=== PATIENT | female | born 1955 | race Caucasian/White ===

== ENCOUNTER 2023-12-18 17:31 | Inpatient (IN) | payer OTHER ==
[2023-12-18 17:40] VITALS: BMI 28.7
[2023-12-18 19:35] LABS: BASO % 0.8 % (0-2.0); EOS % 1.2 % (0-4.5); HEMATOCRIT 40.8 % (32.4-45.2); HEMOGLOBIN 13.6 GM/dL (10.7-15.3); LYMPH % 37.9 % (8-40); MCH 30.7 pg (25.7-33.7); MCHC 33.3 g/dl (32.0-36.0); MEAN CELL VOLUME 92.4 fl (80-96); MEAN PLT VOLUME 9.2 fl (7.5-11.1); MONO % 9.7 % (3.8-10.2); NEUT % 50.4 % (42.8-82.8); PLATELET COUNT 226 10^3/uL (134-434); RBC 4.41 M/mm3 (3.60-5.2); RDW 13.5 % (11.6-15.6); WHITE BLOOD COUNT 9.8 K/mm3 (4.0-10.0)
[2023-12-18 19:53] LABS: POTASSIUM 5.2 mmol/L (3.5-5.1)
[2023-12-18 19:55] LABS: CALCIUM 9.3 mg/dL (8.5-10.1)
[2023-12-18 19:56] LABS: ALBUMIN 3.8 g/dl (3.4-5.0); BLOOD UREA NITROGEN 15.9 mg/dL (7-18)
[2023-12-18 19:59] LABS: CREATININE 0.8 mg/dL (0.55-1.3)
[2023-12-18 20:01] LABS: BILIRUBIN,TOTAL 0.4 mg/dL (0.2-1); TOT PROT 7.3 g/dl (6.4-8.2)
[2023-12-18 20:05] LABS: EPI CELLS 12 /uL (0-25.1); HYALINE CASTS 2 /uL (0-3.1); PH,URINE 5.5 (5.0-8.0); URINE APPEARANCE CLEAR; URINE BACTERIA 27 /uL (0-1359); URINE BILIRUBIN NEGATIVE (NEGATIVE); URINE COLOR YELLOW; URINE GLUCOSE (UA) 3+ (NEGATIVE); URINE KETONE NEGATIVE (NEGATIVE); URINE LEUK ESTERASE 1+ (NEGATIVE); URINE NITRITE NEGATIVE (NEGATIVE); URINE PROTEIN NEGATIVE (NEGATIVE); URINE RBC 2 /uL (0-23.9); URINE UROBILINOGEN 0.2 mg/dL (0.2-1.0); URINE WBC 66 /uL (0-25.8)
[2023-12-18] MEDS ORDERED: ACETAMINOPHEN 325 MG TABLET (FP) ONE (20:26)
[2023-12-18] MEDS ORDERED: MAG HYDROX/AL HYDROX/SIMETH 30 ML UNIT-DOSE CUP ONE (20:26)
[2023-12-18] MEDS: MAG HYDROX/AL HYDROX/SIMETH 30 ML UNIT-DOSE CUP PO ONE (20:32)
[2023-12-18] MEDS: ACETAMINOPHEN 500 MG TABLET (FP) PO ONE (20:32)
[2023-12-18] MEDS: LACTATED RINGERS SOLUTION 1000 ML INFUS.BAG IV ONE (20:32)
[2023-12-18] MEDS ORDERED: CEFTRIAXONE 1 GM/50 ML BAG ONE (20:34)
[2023-12-18] MEDS: CEFTRIAXONE 1,000 MG in DEXTROSE 5%-WATER - 50 ML IVPB ONE (20:43)
[2023-12-18] MEDS: ONDANSETRON 4 MG/2 ML VIAL IVPB ONE (20:43)
[2023-12-18] MEDS ORDERED: ONDANSETRON 4 MG/2 ML VIAL ONE (20:43)
[2023-12-19] MEDS ORDERED: ONDANSETRON 4 MG TABLET PO PRN (00:38)
[2023-12-19] MEDS: LACTATED RINGERS SOLUTION 1,000 ML IV SCH ×3 (00:42→13:19)
[2023-12-19] MEDS ORDERED: ONDANSETRON *ODT* 4 MG TABLET SL PRN (05:50)
[2023-12-19] MEDS ORDERED: PANTOPRAZOLE 40 MG TABLET PO ONE (10:02)
[2023-12-19] MEDS ORDERED: ENOXAPARIN NA (PORCINE) 40 MG/0.4 ML DISP.SYRIN SQ ONE (10:03)
[2023-12-19] MEDS ORDERED: INSULIN ASPART SLIDING SCALE (NOVOLOG) 1 VIAL SQ ONE ×3 (10:03→18:15)
[2023-12-19] MEDS ORDERED: ACETAMINOPHEN 1000 MG/100 ML BAG IVPB PRN (10:06)
[2023-12-19] MEDS ORDERED: morphine CARPU-JECT 2 MG/1 ML DISP.SYRIN IVPUSH PRN (10:06)
[2023-12-19] MEDS: INSULIN ASPART SLIDING SCALE (NOVOLOG) 1 VIAL SQ SCH (10:10)
[2023-12-19] MEDS: PANTOPRAZOLE 40 MG TABLET PO SCH (10:57)
[2023-12-19] MEDS: ENOXAPARIN NA (PORCINE) 40 MG/0.4 ML DISP.SYRIN SQ SCH (10:57)
[2023-12-20 07:14] VITALS: RESP 18
[2023-12-20 10:35] LABS: HEMATOCRIT 41.2 % (32.4-45.2); HEMOGLOBIN 13.6 GM/dL (10.7-15.3); MCH 30.9 pg (25.7-33.7); MEAN CELL VOLUME 93.7 fl (80-96); MEAN PLT VOLUME 9.5 fl (7.5-11.1); PLATELET COUNT 198 10^3/uL (134-434); WHITE BLOOD COUNT 7.5 K/mm3 (4.0-10.0)
[2023-12-20 10:59] LABS: POTASSIUM 4.1 mmol/L (3.5-5.1)
[2023-12-20 11:02] LABS: ALBUMIN 3.6 g/dl (3.4-5.0); CALCIUM 9.6 mg/dL (8.5-10.1)
[2023-12-20 11:03] LABS: BLOOD UREA NITROGEN 13.1 mg/dL (7-18); MAGNESIUM 2.2 mg/dL (1.8-2.4)
[2023-12-20 11:06] LABS: CREATININE 0.8 mg/dL (0.55-1.3); PHOSPHOROUS 3.6 mg/dL (2.5-4.9)
[2023-12-20 11:07] LABS: BILIRUBIN,TOTAL 0.6 mg/dL (0.2-1)
[2023-12-20 14:10] VITALS: BP 109/66; PULSE 77; TEMP 98.4
== END 2023-12-20 16:13 | disposition home or self-care (01) | DRG 392 ==
LOC: JER 17:31 → JERBED 12-19 00:16 → J7W 12-19 21:02
PROVIDERS: ADMIT Student in an Organized Health Care Education/Training Program; ATTEND Internal Medicine
DX: K21.9 Gastro-esophageal reflux disease without esophagitis (principal); E11.9 Type 2 diabetes mellitus without complications; I10 Essential (primary) hypertension; E78.5 Hyperlipidemia, unspecified; R13.10 Dysphagia, unspecified; Z79.84 Long term (current) use of oral hypoglycemic drugs
CPT/HCPCS: 0241U-QW; 36415; 71046-TC-FY; 74177-TC; 76700-TC; 80048; 80053; 80061; 81003; 82962; 83690; 83735; 84100; 84484; 85025; 85027; 87077; 87086; 93005; 93010; 99285-25